=== PATIENT | male | born 1985 ===

== ENCOUNTER 2024-09-16 18:19 | Inpatient (IN) | payer MEDICAID, SELFPAY ==
[2024-09-16] VITALS (9 sets, daily range): BP systolic 98–127; BP diastolic 66–94; PULSE 115–151; RESP 14–24; TEMP 37.3; O2SAT 94–98
--- NOTE | 2024-09-16 19:19 | W.PC.ACHO ---
Registration Status: Primary Language: Preferred Language: Diet Orders Category Date Time Status Regular/Normal [DIET] Nutrition 09/17/24 Breakfast Ordered Intake and Output - 24 Hour Total 09/16/24 thru 09/16/24 18:05 Weight 75 kg v v v v v v v v v Sending and/or Receiving Nurses: Please use comment section below to note any information pertinent to the patient hand-off not included above. Information / Comments: All questions answered. Hardcopy of patient report put in chart. Report received from:Russ Conde RN @ [facility] emergency department.
[2024-09-16] MEDS: PHENobarbital 130 MG/ML VIAL IVP ×6 (20:12→23:21)
[2024-09-16] MEDS: Normal Saline Flush 10 ML SYR IVP ×5 (20:13→22:11)
--- NOTE | 2024-09-16 21:10 | W.PM.HP.N ---
Date of service: 09/16/24 Time of Service: 21:10 Assessment and Plan Assessment and plan (1) Alcohol withdrawal: Start date: 09/16/24 Status: Acute Assessment and plan: This is a 47-year-old gentleman transferred from an outside hospital, [facility] for treatment of alcohol withdrawal with patient having severe alcohol withdrawal with seizures in the past. He has not been successful quitting alcohol last night he is on benzodiazepine treatment for his may have been self treating anxiety with alcohol. He has fair insight. He did have more consistent symptoms and denies alcohol which can be reengaged at discharge. He will be admitted to the ICU for alcohol withdrawal protocol with phenobarbital. He has fair insight. He is a full code. (2) Alcohol abuse: Status: Chronic Assessment and plan: Patient has had intermittent dissociation with sustained success quitting alcohol in the past. He seems highly motivated to quit alcohol will need a more attention to his anxiety and self treatment. He does have some addiction personality with benzodiazepine use. Urine drug screen should be considered and the VPMS was reviewed revealing his recent prescription being abruptly reduced as per his history. Patient should review this with his psychiatric caregiver. He also may engage with his PCP for more reliable prescribing and monitoring. (3) Depression with anxiety: Status: Chronic Assessment and plan: Patient initiated and more aggressive than evaluation and treatment of this problem which is now down to extremity with an alcohol and unfortunately used benzodiazepines. He should avoid medications for (4) Tobacco use disorder, continuous: Status: Acute Assessment and plan: Offer nicotine supplement as needed. Long-term cessation was recommended. Patient may be self treating anxiety with nicotine. History of Present Illness History of Present Illness Chief Complaint: Benzodiazepine withdrawal with alcohol abuse. Narrative: This is a 39-year-old male patient who resides in [place], [place] seeing his PCP at [facility] and psychiatry and in [place]. He does have alcohol abuse and has intermittently stopped using alcohol once for more than a year and recently just under a year. He does drink alcohol to self treat anxiety with depression and is on antidepressants along with clonidine for blood pressure. He also was prescribed Klonopin at a low dose but frequent dosing over the last several months with the last prescription miss-written and the patient running out early. He ran out for about 1 week and had an escalation in his alcohol use. He is on Vivitrol IM monthly through mental health. He has his prescriptions for Klonopin through mental [facility] and finds that at times they are difficult to engage with but he has problems. I did advise that he engage with his PCP on his controlled substance treatment to have more communication and to avoid this situation in the future. VPMS was reviewed and does reveal prescribing of Klonopin through mental health as patient stated. He will try. With negative for any other substances. Patient reported to the ED did not have alcohol because of concerns for alcohol withdrawal and benzodiazepine withdrawal. He was given a dose of Ativan but wants a [facility] ER called for transfer to our ICU unit, he was directed to phenobarbital protocol for alcohol withdrawal. He did have an alcohol level earlier in the day of admission at [facility]. Upon transfer to [facility] ICU, the patient was having alcohol withdrawal actively and phenobarbital loading dose was completed with intermittent phenobarbital for withdrawal symptoms. Patient does have fair insight into his problems with addiction and self treating. He is engaged with mental health and will continue this relationship. He was admitted to ICU because of his severe withdrawal with seizures in the past. He was given the higher dose of phenobarbital loading. We will avoid benzodiazepines during this hospital stay, patient needs to discuss alternative treatments for his anxiety and benzodiazepines in the future because of his difficulty obtaining consistent prescribing. His medical problems are stable upon transfer and admission to ICU. He does not appear to have any problem with other substance abuse. He is a full code. Review of Systems Narrative: 13 point review of systems otherwise unrevealing or stable. There was no tail ripper to this decompensation other than ran out of his Klonopin which was miss-prescribed the last prescription. [facility] All Active Problems Anemia (Chronic) Thrombocytopenia (Chronic) Alcoholic hepatitis (Acute) Alcohol withdrawal (Acute) Tobacco use disorder, continuous (Acute) Depression with anxiety (Chronic) Alcohol abuse (Chronic) Social History Smoking/Tobacco Use Status: Current every day Tobacco Type: cigarettes and smokeless tobacco Smoking risk assessment performed?: Yes Alcohol Intake: current Alcohol Intake frequency: 3 or more drinks per day Alcohol type: beer Substance use type: does not use Housing: apartment Do you feel safe at home: Yes Do you feel safe in your relationship?: Yes Meds Allergies and Home Medications Allergies Allergy/AdvReac Type Severity Reaction Status Date / Time animal dander Allergy Intermediate Other (See Verified 09/16/24 20:49 Comment) gabapentin AdvReac Unknown Unknown Verified 09/17/24 21:06 Home Medications ?Medication ?Instructions ?Recorded ?Confirmed ?Type ferrous sulfate PO 09/16/24 History folic acid .ROUTE 09/16/24 History naltrexone microspheres 380 mg 380 mg IM QMONTH 09/16/24 09/16/24 History intramuscular suspension,extended release (Vivitrol) thiamine HCl (vitamin B1) .ROUTE 09/16/24 History chlordiazepoxide HCl 5 mg capsule 5 mg PO TID PRN #20 caps 09/21/24 Rx nicotine 21 mg/24 hr daily 21 mg transdermal QPM 7 days #7 ea 09/21/24 Rx transdermal patch pantoprazole 40 mg tablet,delayed 40 mg PO QAM #30 tabs 09/21/24 Rx release sertraline 50 mg tablet 50 mg PO DAILY 30 days #30 tabs 09/21/24 Rx Exam Narrative Exam Narrative: General: Patient appears appropriate for age, slightly anxious with pressured speech, alert and oriented x 3 and in no acute distress. HEENT: Normocephalic, eyes with pupils equal and reactive light symmetrically, extraocular movement intact and sclera anicteric. Oropharynx with moist mucosa and good dentition. Neck: Supple without JVD. Back: Normal posture without CVA tenderness. Lungs: Clear to auscultation percussion with no focalizing rales or rhonchi. No expiratory wheeze. Heart: Regular rate and gallops appreciated. Abdomen: Normal contour, soft and nontender to palpation without palpable hepatosplenomegaly. Bowel sounds positive in all 4 Genitalia/rectal: Exam deferred. Extremities: Without clubbing, cyanosis or pitting edema. Peripheral pulses intact Skin: Slightly sweaty, warm and normal color. Neuro: Cranial nerves II to XII grossly intact, no focalizing motor deficits that no tremor. Psych: Anxious, pressured conversation and unable to stay on task and good historian. No abnormal thought processes per recent memory intact. Results Labs 09/21/24 06:28 09/21/24 06:28 Last Vital Signs Temp 37.3 C 09/16/24 20:08 Pulse 127 H 09/16/24 20:08 Resp 15 09/16/24 20:08 BP 127/91 H 09/16/24 20:08 Time Spent Time spent with Patient: >75 minutes Time was spent: preparing to see the patient(eg.review tests), obtaining and/or reviewing separately otained hiistory, ordering medications,tests, procedures, indepentently interpreting results, counseling the patient and care coordination
[2024-09-16 21:28] LABS: HCT 37.8 % (40.0-50.0); HGB 13.6 g/dL (13.5-17.5); MCH 34.5 pg (27.0-33.0); MCV 96 fL (80-95); MPV 9.4 fL (8.0-11.0); Platelet Count 166 10^3/uL (130-400); RBC 3.94 10^6/uL (4.36-5.78); RDW 12.4 % (11.8-14.1); RDW-SD 43.7 fL; WBC 10.25 10^3/uL (4.4-10.8)
[2024-09-16] MEDS: Enoxaparin 40 MG/0.4 ML SYR SC (21:35)
[2024-09-16 21:39] LABS: Prothrombin Time 9.8 sec (9.1-11.1)
[2024-09-16] MEDS: Normal Saline 1,000 ML 150 ML IV (21:45)
[2024-09-16 21:48] LABS: PHOSPHORUS 2.5 mg/dL (2.6-4.7)
[2024-09-16 21:51] LABS: ALT 262 U/L (16-63); AST 194 U/L (15-37); Albumin 3.4 g/dL (3.4-5.0); Alkaline Phosphatase 65 U/L (46-116); Anion Gap 11.2 mmol/L (3-11); BUN 17 mg/dL (7-18); Bilirubin, Total 0.6 mg/dL (0.2-1.0); CO2 24.8 mmol/L (21.0-32.0); CREATININE 0.6 mg/dL (0.70-1.30); Calcium 7.5 mg/dL (8.5-10.1); Chloride 104 mmol/L (98-107); Estimated GFR 125.15 (mL/min/1.73m2); Glucose 95 mg/dL (74-106); Potassium 3.8 mmol/L (3.5-5.1); Sodium 140 mmol/L (136-145); Total Protein 6.1 g/dL (6.4-8.2)
[2024-09-16 22:05] LABS: COVID-19 PCR Negative (Negative); Influenza A PCR Negative (Negative); Influenza B PCR Negative (Negative); RSV PCR Negative (Negative)
[2024-09-16 22:06] LABS: Source Nasopharynx
[2024-09-16] MEDS: cloNIDine 0.1 MG TAB 0.2 MG PO (23:51)
[2024-09-17] VITALS (31 sets, daily range): BP systolic 88–143; BP diastolic 55–94; PULSE 79–145; RESP 10–36; TEMP 36.2–37; O2SAT 94–99
[2024-09-17] MEDS: Pantoprazole 40 MG VIAL IVP ×2 (00:02→08:03)
[2024-09-17] MEDS: Normal Saline Flush 10 ML SYR IVP ×3 (00:02→19:38)
[2024-09-17] MEDS: Prochlorperazine 10 MG/2 ML VIAL IVP ×2 (00:02→03:57)
[2024-09-17 00:17] LABS: PHENOBARBITAL 24.3 ug/mL (15.0-40.0)
[2024-09-17] MEDS: PHENobarbital 130 MG/ML VIAL IVP ×3 (01:22→04:34)
[2024-09-17 03:20] LABS: HCT 31.4 % (40.0-50.0); HGB 11.2 g/dL (13.5-17.5); MCH 34.4 pg (27.0-33.0); MCHC 35.7 % (32.0-36.0); MCV 96 fL (80-95); MPV 9.5 fL (8.0-11.0); Platelet Count 127 10^3/uL (130-400); RBC 3.26 10^6/uL (4.36-5.78); RDW 12.4 % (11.8-14.1); RDW-SD 43.9 fL; WBC 7.43 10^3/uL (4.4-10.8)
[2024-09-17 03:38] LABS: ALT 210 U/L (16-63); AST 149 U/L (15-37); Albumin 2.9 g/dL (3.4-5.0); Alkaline Phosphatase 55 U/L (46-116); Anion Gap 8.7 mmol/L (3-11); BUN 20 mg/dL (7-18); Bilirubin, Total 0.8 mg/dL (0.2-1.0); CO2 25.3 mmol/L (21.0-32.0); CREATININE 0.6 mg/dL (0.70-1.30); Calcium 7.2 mg/dL (8.5-10.1); Chloride 105 mmol/L (98-107); Estimated GFR 125.15 (mL/min/1.73m2); Glucose 93 mg/dL (74-106); Magnesium 1.3 mg/dL; PHOSPHORUS 2.1 mg/dL (2.6-4.7); Potassium 3.8 mmol/L (3.5-5.1); Sodium 139 mmol/L (136-145); Total Protein 5.2 g/dL (6.4-8.2)
[2024-09-17 04:08] LABS: PHENOBARBITAL 28.3 ug/mL (15.0-40.0)
[2024-09-17] MEDS: MAGNESIUM SULFATE 2 GM/50 ML BAG IV_INF ×2 (04:39→08:57)
[2024-09-17] MEDS: Normal Saline 1,000 ML 150 ML IV (04:45)
[2024-09-17] MEDS: cloNIDine 0.1 MG TAB 0.2 MG PO ×2 (04:47→08:05)
[2024-09-17] MEDS: Multivitamin TAB 1 TAB PO (08:04)
[2024-09-17] MEDS: Folic Acid 1 MG TAB PO (08:04)
[2024-09-17] MEDS: Thiamine 100 MG TAB PO (08:04)
--- NOTE | 2024-09-17 08:26 | W.PM.PROGNOT ---
Date of Service Date of service: 09/17/24 Time of Service: 08:26 Assessment and Plan Assessment and plan (1) Alcohol withdrawal: Start date: 09/16/24 Status: Acute Assessment and plan: Combination of alcohol and benzodiazepine withdrawal On phenobarbital protocol, has hit hard max, though we could repeat levels and redose if necessary He is still quite anxious, will add dexmedetomide drip. Hold clonidine while he is on this as mechanism is same. Treat symptoms with ondansatron, immodium (2) Alcohol abuse: Status: Chronic Assessment and plan: H/o severe alcohol use disorder. Has been treated with IM naltrexone, though late for dose. Has been on prescribed chronic benzodiazapines, overusing, suggesting mixed disorder. 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 Ila discussed options like baclofen, topiramate, gabapentin. Has tried gabapentin. Defer these for now. (3) Depression with anxiety: Status: Chronic Assessment and plan: Resume buproprion. This can lower seizure threshold, but he is on therapeutic phenobarbital so I think this is safe. Dose is low. (4) Tobacco use disorder, continuous: Status: Acute Assessment and plan: NRT prn, might help with anxiety (5) Alcoholic hepatitis: Status: Acute Assessment and plan: Mild, normal INR and bili. AST/ALT imrpoving. (6) Thrombocytopenia: Status: Chronic Assessment and plan: I am not sure how chronic this is. Alcohol, vitamin deficiency like b12, or cirrhosis could all cause this. He is also on enoxaparin. Follow. (7) Anemia: Status: Chronic Assessment and plan: Mild after hydration. He is at risk for GI bleed but we haven't seen this. Get ferritin and B12 with routine labs. Follow. (8) Hypomagnesemia: Status: Acute Assessment and plan: Quite low at 1.3 a/w alcohol abuse. Given 2g, give additional 2g as it may help with anxiety symptoms. Follow. Subjective Subjective Patient reports: denies vomiting, shortness of breath or fever Interval history since last seen: Events: Hit hard stop on phenobarbital this morning He still feels quite anxious, on edge, shaky. He had loose stool this morning. Some mild nausea. no pain. He did eat breakfast. Exam Narrative Exam Narrative: GEN: Alert and oriented, anxious and uncomfortable appearing, but cooperative. LUNGS: CTAB with normal effort CV: tachycardic and regular with no murmurs, gallops, or rubs. ABD: active bowel sounds, soft, nontender and nondistended. No masses. EXT: no cyanosis, clubbing, or edema NEURO: Normal speech, mild fine tremor PSYCH: mood depressed, affect anxious, no hallucinations Objective Last Vital Signs Temp 37 C 09/17/24 02:45 Pulse 125 H 09/17/24 07:02 Resp 24 09/17/24 07:02 BP 129/82 09/17/24 07:02 Pulse Ox 94 09/17/24 07:02 Laboratory Results - last 24 hr 09/16/24 09/16/24 09/17/24 21:20 23:50 02:57 WBC 10.25 RBC 3.94 L Hgb 13.6 Hct 37.8 L MCV 96 H MCH 34.5 H MCHC 36.0 RDW 12.4 Plt Count 166 MPV 9.4 PT 9.8 INR 1.0 Sodium 140 Potassium 3.8 Chloride 104 Carbon Dioxide 24.8 Anion Gap 11.2 H BUN 17 Creatinine 0.6 L Est GFR (CKD-EPI 2020) 125.15 Glucose 95 Calcium 7.5 L Phosphorus 2.5 L Magnesium Total Bilirubin 0.6 AST 194 H ALT 262 H Alkaline Phosphatase 65 Total Protein 6.1 L Albumin 3.4 Phenobarbital 24.3 Free Phenobarbital Cancelled COVID-19 Source Nasopharynx SARS-CoV-2 (PCR) Negative Influenza Type A (PCR) Negative Influenza Type B (PCR) Negative RSV (PCR) Negative 09/17/24 03:11 WBC 7.43 RBC 3.26 L Hgb 11.2 L D Hct 31.4 L MCV 96 H MCH 34.4 H MCHC 35.7 RDW 12.4 Plt Count 127 L MPV 9.5 PT INR Sodium 139 Potassium 3.8 Chloride 105 Carbon Dioxide 25.3 Anion Gap 8.7 BUN 20 H Creatinine 0.6 L Est GFR (CKD-EPI 2020) 125.15 Glucose 93 Calcium 7.2 L Phosphorus 2.1 L Magnesium 1.3 Total Bilirubin 0.8 AST 149 H ALT 210 H Alkaline Phosphatase 55 Total Protein 5.2 L Albumin 2.9 L Phenobarbital 28.3 Free Phenobarbital COVID-19 Source SARS-CoV-2 (PCR) Influenza Type A (PCR) Influenza Type B (PCR) RSV (PCR) PAWSS Have you Been Recently Intoxicated or Drunk Within the Last 30 days?: Yes Have you Ever Experienced Previous Episodes of Alcohol Withdrawal?: Yes Have you ever Experienced Withdrawal Seizures?: Yes Have you ever Experienced Delirium Tremens(DT)s?: Yes Have you ever undergone Alcohol Rehabilitation Treatment (i.e, inpt ot outpatient treatment programs)?: Yes Have you ever Experienced Blackouts?: Yes Positive Blood Alcohol level on Presentation? [PCS.BAL]: Yes Evidence of Increased Autonomic Activity (i.e. HR>120, tremor, sweating, agitation, nausea)?: Yes Result: 8 Time Spent with Patient Time Spent with Patient: >50 minutes Time was spent: preparing to see the patient(eg.review tests), obtaining and/or reviewing separately otained hiistory, ordering medications,tests, procedures, referring, communicating with other health clinical care manager, indepentently interpreting results, counseling the patient and care coordination
--- NOTE | 2024-09-17 08:50 | PDOC.CMIN ---
Date of service: 09/17/24 Time of Service: 08:50 Care Management Initial Assmt Initial Assessment Reason for Hospitalization: ETOH Withdrawal Functional Status/Living Situation Patient Presentation: Lorenzo was awake and lying in bed when CM met with him. He is been closely monitored and treated for ETOH withdrawal and on phenobarbital protocol. Lorenzo lives in [place], he is independent at baseline and reports that his parent and sister are very supportive. 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 He may want to meet with a Insurance And Benefits Clerk during his admission, but not right now. 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) Instrumental Activities of Daily Living (ADLs): Independent Medications Medication Management: No Issues/Barriers identified Physical Functioning/Mobility Assistive Device: None Advance Directives Advance Directives: Do you have an Advance Directive: AD On File at [facility]: N 09/16/24 17:21 Date Asked 09/16/24 09/16/24 17:21 AD Date Reviewed COLST On File at [facility] COLST Date Scanned Code Status Resuscitation Status Full Code Portal Pt does not currently have a portal and education provided: Yes Insurance Coverage/Financial Issues Insurance: Medicaid of [place] Financial Issues: None identified Care Team Visit Care Team Role Provider Type Unknown Unknown Primary Care Provider STAFF PHYSICIAN Tim Sen Admit Provider [facility] STAFF PHYSICIAN Attending Provider Discharge Potential Discharge Needs: PCP F/U Appt (PCP is Dante Johnson.) Anticipated Barriers to Discharge: None Identified Patient/Family Education Needs: Review discharge instructions, discuss Ask Me Three Transportation: Private vehicle Plan: Lorenzo is being closely monitored and treated for ETOH withdrawal. 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 He will follow up with PCP, discharge plan of care and will be provided with recovery resources (from the [facility], if any.) CM will follow. Social Determinants of Health Screening Social Determinants of Health last assessed: 09/17/24 Will the Patient Participate in the Screening?: Yes Do you worry about having a steady place to live?: no Problems where you live: mold and water leaks In the past 12 months, have you had to go without electric, gas, oil or water in your home?: no Have you or anyone in your house had to go without enough food to eat?: no Has lack of transportation kept you from medical appointments or from doing things needed for daily living?: no Has anyone in your life made you feel unsafe or unsupported?: no How hard is it for you to pay for the very basics like food, housing, medical care, and heating? Would you say it is:: Not hard at all Do you want help finding or keeping work or a job?: I do not need or want help If for any reason you need help with day-to-day activities such as bathing, preparing meals, shopping, managing finances, etc., do you get the help you need?: I don?t need any help How often do you feel lonely or isolated from those around you?: Always Do you speak a language other than Indonesian at home?: No Does the patient want assistance with any of the above?: No Health Related Social Needs Health related social needs: inadequate housing (Z59.1) and feeling lonely/isolated (Z60.8) PFSH All Active Problems Hypomagnesemia (Acute) Anemia (Chronic) Thrombocytopenia (Chronic) Alcoholic hepatitis (Acute) Tobacco use disorder, continuous (Acute) Depression with anxiety (Chronic) Alcohol withdrawal (Acute) Alcohol abuse (Chronic) Social History Smoking/Tobacco Use Status: Current every day Tobacco Type: cigarettes and smokeless tobacco Smoking risk assessment performed?: Yes Alcohol Intake: current Alcohol Intake frequency: 3 or more drinks per day Alcohol type: beer Substance use type: does not use Housing: apartment Do you feel safe at home: Yes Do you feel safe in your relationship?: Yes
[2024-09-17] MEDS: Nicotine 21 MG/24 HR PATCH TD (08:57)
[2024-09-17] MEDS: buPROPion-CR 100 MG TABCR 200 MG PO (08:57)
[2024-09-17] MEDS: dexmedeTOMidine IN 0.9 % NACL 400 MCG/100 ML BTL 7.19 MCG IV (11:09)
--- NOTE | 2024-09-17 12:26 | PHA.REVIEW2 ---
Pharmacy Admission Review Admission Clinical Review Admission Pharmacy Review: Hypomagnesemia (Acute) Alcoholic hepatitis (Acute) Tobacco use disorder, continuous (Acute) Alcohol withdrawal (Acute) animal dander Allergy (Intermediate, Verified 09/16/24 20:49) Other (See Comment) gabapentin Allergy (Unknown, Verified 09/16/24 20:48) Unknown Resuscitation Status Full Code Height 5 ft 10 in Weight 71.9 kg Comments Comments/Follow Ups: Watch CIWA, BP, HR, labs, and for med changes (IV to PO). Patient has hit phenobarbital dosing hard limit based on what patient received in the ED in addition to PRN dosing given here. Pharmacy Admission Review Renal Dosing Renal Dosing: BUN 20 mg/dL (7-18) H 09/17/24 03:11 Creatinine 0.6 mg/dL (0.70-1.30) L 09/17/24 03:11 Medications needing adjustments: Reviewed (Crcl ~166 mL/min current meds are okay) Anticoagulation Anticoagulation: Hgb 11.2 g/dL (13.5-17.5) L D 09/17/24 03:11 Hct 31.4 % (40.0-50.0) L 09/17/24 03:11 Plt Count 127 10^3/uL (130-400) L 09/17/24 03:11 INR 1.0 (0.9-1.1) 09/16/24 21:20 Creatinine 0.6 mg/dL (0.70-1.30) L 09/17/24 03:11 DVT Prophylaxis: Reviewed Medications: Enoxaparin Opiate Usage Evaluate Pain Scale/Pains Meds: N/A Relevant Labs Relevant Labs: Sodium 139 mmol/L (136-145) 09/17/24 03:11 Potassium 3.8 mmol/L (3.5-5.1) 09/17/24 03:11 Chloride 105 mmol/L (98-107) 09/17/24 03:11 Phosphorus 2.1 mg/dL (2.6-4.7) L 09/17/24 03:11 Magnesium 1.3 mg/dL 09/17/24 03:11 Electrolytes, C-Reactive P, ESR: Reviewed DM Control DM Control: Glucose 93 mg/dL (74-106) 09/17/24 03:11 DM Control: Reviewed (No DM in medical history, no A1c on file) Cardiac Review BP, HR, EF%: Reviewed (BP has been up and down and HR has been elevated so far this admission) QTc Review QTc: N/A IV to PO Switch IV Medications: Reviewed Home Meds Home Med List reviewed: Reviewed (clonazepam (is being held per H&P), clonidine (being held while on dexmedetomidine as they are both alpha2 agonists), ferrous sulfate, naltrexone (dosed once a month)) Current Meds Current Medication Order Review: Reviewed Comments Comments/Follow Ups: Watch CIWA, BP, HR, labs, and for med changes (IV to PO). Patient has hit phenobarbital dosing hard limit based on what patient received in the ED in addition to PRN dosing given here.
[2024-09-17] MEDS: dexmedeTOMidine IN 0.9 % NACL 400 MCG/100 ML BTL 12.583 MCG IV (17:06)
[2024-09-17] MEDS: Acetaminophen 325 MG TAB PO (19:37)
[2024-09-17] MEDS: Enoxaparin 40 MG/0.4 ML SYR SC (19:38)
--- NOTE | 2024-09-17 20:52 | W.PC.ACHO ---
Registration Status: Primary Language: Preferred Language: Most Recent Vital Signs Temperature 36.8 C 09/17/24 19:24 Temperature Source Temporal Artery Scan 09/17/24 19:24 Pulse 93 H 09/17/24 19:00 Pulse 90 09/17/24 19:01 Respiratory Rate 14 09/17/24 19:01 Blood Pressure 88/57 L 09/17/24 19:00 Blood Pressure Mean 68 09/17/24 19:00 Pulse Oximetry 97 09/17/24 17:00 Oxygen Delivery Method Room Air 09/17/24 19:24 Oxygen Flow Rate 0 09/17/24 19:24 Pain Level 5 09/17/24 19:24 Allergies animal dander Allergy (Intermediate, Verified 09/16/24 20:49) Other (See Comment) sneezing, and nasal congestion gabapentin Allergy (Unknown, Verified 09/16/24 20:48) Unknown patient does not like how he feels with it Active Medications Generic Name Dose Route Start Last Admin Trade Name Freq PRN Reason Stop Dose Admin Acetaminophen 325 - 650 mg 09/16/24 20:51 09/17/24 19:37 Acetaminophen 325 Mg Tab PO 650 mg Q4H PRN PRN Administration Bupropion HCl 200 mg 09/17/24 09:00 09/17/24 08:57 Bupropion-Cr 100 Mg Tabcr PO 200 mg DAILY JORDAN Administration Enoxaparin Sodium 40 mg 09/16/24 20:00 09/17/24 19:38 Enoxaparin 40 Mg/0.4 Ml Syr SC 40 mg Q24H JORDAN Administration Folic Acid 1 mg 09/17/24 08:30 09/17/24 08:04 Folic Acid 1 Mg Tab PO 09/23/24 08:31 1 mg QAM JORDAN Administration Dexmedetomidine/Sodium Chloride 400 mcg in 100 mls @ 7.19 mls/hr 09/17/24 08:30 09/17/24 19:41 Precedex IV 0.9 mcg/kg/hr INFUSION JORDAN 16.178 mls/hr Titration Protocol 0.4 MCG/KG/HR Multivitamins 1 tab 09/17/24 08:30 09/17/24 08:04 Multivitamin Tab PO 09/23/24 08:31 1 tab QAM JORDAN Administration Nicotine 21 mg 09/17/24 08:19 09/17/24 08:57 Nicotine 21 Mg/24 Hr Patch TD 21 mg DAILY PRN PRN Administration Pantoprazole Sodium 40 mg 09/17/24 08:30 09/17/24 08:03 Pantoprazole 40 Mg Vial IVP 40 mg DAILY JORDAN Administration Prochlorperazine Edisylate 10 mg 09/16/24 23:47 09/17/24 03:57 Prochlorperazine 10 Mg/2 Ml Vial IVP 10 mg Q4H PRN PRN Administration Sodium Chloride 0 ml 09/16/24 18:18 09/17/24 00:02 Normal Saline Flush 10 Ml Syr IVP 40 ml PRN PRN Administration Sodium Chloride 0 ml 09/16/24 20:00 09/17/24 19:38 Normal Saline Flush 10 Ml Syr IVP 10 ml BID JORDAN Administration Thiamine HCl 100 mg 09/17/24 08:30 09/17/24 08:04 Thiamine 100 Mg Tab PO 09/23/24 08:31 100 mg QAM JORDAN Administration IV IV Catheter Type [] Peripheral IV IV Catheter Gauge [] 18 Diagnostics 09/17/24 09/17/24 09/16/24 Range/Units 03:11 02:57 23:50 WBC 7.43 (4.4-10.8) 10^3/uL RBC 3.26 L (4.36-5.78) 10^6/uL Hgb 11.2 L D (13.5-17.5) g/dL Hct 31.4 L (40.0-50.0) % MCV 96 H (80-95) fL MCH 34.4 H (27.0-33.0) pg MCHC 35.7 (32.0-36.0) % RDW 12.4 (11.8-14.1) % Plt Count 127 L (130-400) 10^3/uL MPV 9.5 (8.0-11.0) fL PT (9.1-11.1) sec INR (0.9-1.1) Sodium 139 (136-145) mmol/L Potassium 3.8 (3.5-5.1) mmol/L Chloride 105 (98-107) mmol/L Carbon Dioxide 25.3 (21.0-32.0) mmol/L Anion Gap 8.7 (3-11) mmol/L BUN 20 H (7-18) mg/dL Creatinine 0.6 L (0.70-1.30) mg/dL Est GFR (CKD-EPI 2020) 125.15 (mL/min/1.73m2) Glucose 93 (74-106) mg/dL Calcium 7.2 L (8.5-10.1) mg/dL Phosphorus 2.1 L (2.6-4.7) mg/dL Magnesium 1.3 mg/dL Total Bilirubin 0.8 (0.2-1.0) mg/dL AST 149 H (15-37) U/L ALT 210 H (16-63) U/L Alkaline Phosphatase 55 (46-116) U/L Total Protein 5.2 L (6.4-8.2) g/dL Albumin 2.9 L (3.4-5.0) g/dL Phenobarbital 28.3 24.3 (15.0-40.0) ug/mL Free Phenobarbital Cancelled COVID-19 Source SARS-CoV-2 (PCR) (Negative) Influenza Type A (PCR) (Negative) Influenza Type B (PCR) (Negative) RSV (PCR) (Negative) 09/16/24 Range/Units 21:20 WBC 10.25 (4.4-10.8) 10^3/uL RBC 3.94 L (4.36-5.78) 10^6/uL Hgb 13.6 (13.5-17.5) g/dL Hct 37.8 L (40.0-50.0) % MCV 96 H (80-95) fL MCH 34.5 H (27.0-33.0) pg MCHC 36.0 (32.0-36.0) % RDW 12.4 (11.8-14.1) % Plt Count 166 (130-400) 10^3/uL MPV 9.4 (8.0-11.0) fL PT 9.8 (9.1-11.1) sec INR 1.0 (0.9-1.1) Sodium 140 (136-145) mmol/L Potassium 3.8 (3.5-5.1) mmol/L Chloride 104 (98-107) mmol/L Carbon Dioxide 24.8 (21.0-32.0) mmol/L Anion Gap 11.2 H (3-11) mmol/L BUN 17 (7-18) mg/dL Creatinine 0.6 L (0.70-1.30) mg/dL Est GFR (CKD-EPI 2020) 125.15 (mL/min/1.73m2) Glucose 95 (74-106) mg/dL Calcium 7.5 L (8.5-10.1) mg/dL Phosphorus 2.5 L (2.6-4.7) mg/dL Magnesium mg/dL Total Bilirubin 0.6 (0.2-1.0) mg/dL AST 194 H (15-37) U/L ALT 262 H (16-63) U/L Alkaline Phosphatase 65 (46-116) U/L Total Protein 6.1 L (6.4-8.2) g/dL Albumin 3.4 (3.4-5.0) g/dL Phenobarbital (15.0-40.0) ug/mL Free Phenobarbital COVID-19 Source Nasopharynx SARS-CoV-2 (PCR) Negative (Negative) Influenza Type A (PCR) Negative (Negative) Influenza Type B (PCR) Negative (Negative) RSV (PCR) Negative (Negative) Intake and Output - 24 Hour Total 09/16/24 thru 09/17/24 19:54 Intake Total 4538.561 Output Total 1675 Balance 2863.561 Weight 71.9 kg Intake: IV 1868.561 Oral 2670 Output: Urine 1675 Other: Urine Color Yellow Urine Appearance Clear Urine Odor None Stool Size Moderate Stool Characteristics Soft Black Problems Hypomagnesemia (Acute) Anemia (Chronic) Thrombocytopenia (Chronic) Alcoholic hepatitis (Acute) Tobacco use disorder, continuous (Acute) Depression with anxiety (Chronic) Alcohol withdrawal (Acute) Alcohol abuse (Chronic) v v v v v v v v v Sending and/or Receiving Nurses: Please use comment section below to note any information pertinent to the patient hand-off not included above. Information / Comments: Report received from: DayannaRN @[facility] [place],@ [id number]
[2024-09-17] MEDS: dexmedeTOMidine IN 0.9 % NACL 400 MCG/100 ML BTL 19.773 MCG IV (23:32)
[2024-09-18] VITALS (39 sets, daily range): BP systolic 91–124; BP diastolic 62–88; PULSE 69–102; RESP 10–19; TEMP 36.3–37.6; O2SAT 93–100
[2024-09-18] MEDS: dexmedeTOMidine IN 0.9 % NACL 400 MCG/100 ML BTL 23.368 MCG IV ×5 (04:26→21:49)
[2024-09-18 06:18] LABS: HCT 26.8 % (40.0-50.0); HGB 9.2 g/dL (13.5-17.5); MCH 33.8 pg (27.0-33.0); MCHC 34.3 % (32.0-36.0); MCV 99 fL (80-95); MPV 10.3 fL (8.0-11.0); Platelet Count 119 10^3/uL (130-400); RBC 2.72 10^6/uL (4.36-5.78); RDW 12.3 % (11.8-14.1); RDW-SD 44.4 fL; WBC 4.12 10^3/uL (4.4-10.8)
[2024-09-18] MEDS: Normal Saline Flush 10 ML SYR IVP ×6 (06:40→22:28)
[2024-09-18 06:48] LABS: Ferritin 675 ng/mL (26-388); Magnesium 1.7 mg/dL
[2024-09-18 07:02] LABS: Vitamin B12 413 pg/mL (193-986)
[2024-09-18] MEDS: Pantoprazole 40 MG VIAL IVP (07:29)
[2024-09-18] MEDS: Multivitamin TAB 1 TAB PO (07:30)
[2024-09-18] MEDS: Folic Acid 1 MG TAB PO (07:30)
[2024-09-18] MEDS: Thiamine 100 MG TAB PO (07:30)
[2024-09-18] MEDS: buPROPion-CR 100 MG TABCR 200 MG PO (07:30)
[2024-09-18] MEDS: Ondansetron O.D.T. 4 MG TABEF PO (08:03)
[2024-09-18] MEDS: Acetaminophen 325 MG TAB PO (08:03)
[2024-09-18] MEDS: PHENobarbital 130 MG/ML VIAL IVP (08:21)
--- NOTE | 2024-09-18 08:51 | PDOC.CMPRO ---
Date of service: 09/18/24 Time of Service: 08:51 Care Management Progress Note Progress Note Text Progress Note Text: Lorenzo was awake and lying in bed when CM met with him. He is being closely monitored and treated for ETOH and Benzo withdrawal. He has chronic anxiety, which is being medically managed; he is on Precedex and required a dose of Phenobarb this morning. Lorenzo declines to meet with a high school sports coach, today. He is agreeable, at a later time and when he is less anxious. Lorenzo is self employed, his physical address is [place] [employer], but he gets his mail in [place]. Discharge Potential Discharge Needs: PCP F/U Appt Anticipated Barriers to Discharge: None Identified Patient/Family Education Needs: Review discharge instructions, discuss Ask Me Three Transportation: Private vehicle Plan: Anticipate, pt will discharge home via private when medically cleared for discharge. He will follow up with his local PCP and discharge plan of care as directed. CM will follow and connect patient with community supports for substance abuse, when ready. Social Determinants of Health Screening Social Determinants of Health last assessed: 09/18/24 Will the Patient Participate in the Screening?: Yes Do you worry about having a steady place to live?: no Problems where you live: mold and water leaks In the past 12 months, have you had to go without electric, gas, oil or water in your home?: no Have you or anyone in your house had to go without enough food to eat?: no Has lack of transportation kept you from medical appointments or from doing things needed for daily living?: no Has anyone in your life made you feel unsafe or unsupported?: no How hard is it for you to pay for the very basics like food, housing, medical care, and heating? Would you say it is:: Not hard at all Do you want help finding or keeping work or a job?: I do not need or want help If for any reason you need help with day-to-day activities such as bathing, preparing meals, shopping, managing finances, etc., do you get the help you need?: I don?t need any help How often do you feel lonely or isolated from those around you?: Always Do you speak a language other than [place]ambican at home?: No Does the patient want assistance with any of the above?: No Health Related Social Needs Health related social needs: inadequate housing (Z59.1) and feeling lonely/isolated (Z60.8)
[2024-09-18] MEDS: Nicotine 21 MG/24 HR PATCH TD (08:59)
--- NOTE | 2024-09-18 11:06 | PGE_ITS ---
Date of Service Date of service: 09/18/24 Time of Service: 11:06 Assessment and Plan Assessment and plan (1) Alcohol withdrawal: Start date: 09/16/24 Status: Acute Assessment and plan: Combination of alcohol and benzodiazepine withdrawal, now day 3 H/o seizures in setting of withdrawal. On phenobarbital protocol, has hit hard max, but with levels therapeutic after his last dose yesterday, given another dose today. Dexmedetomide drip helping, try to taper off as tolerated. Has prn ondansatron, immodium (2) Alcohol abuse: Status: Chronic Assessment and plan: H/o severe alcohol use disorder. Has been treated with IM naltrexone, though late for dose. Can resume orally prior to discharge Has been on prescribed chronic benzodiazapines and he may have a mixed disorder. He agreed that his anxiety should be managed without benzodiazepines given their association with poor outcomes in patients with AUD. We again reviewed options like baclofen, topiramate, gabapentin. Has tried gabapentin and didn't like it. Will try topiramate starting this evening, may help anxiety as well, lower risk of seizuress. (3) Depression with anxiety: Status: Chronic Assessment and plan: We had a long discussion of his history and options for treatment. He was previously on SNRI duloxetine, also has some back pain issues, will resume this. Given h/o seizures, stop buproprion. Can use prn hydroxyzine Has been on clonidine, on precedex now, try changing to guafacine as this is the same class but levels will fluctuate less. (4) Tobacco use disorder, continuous: Status: Acute Assessment and plan: NRT prn, might help with anxiety doesn't want to try chantix (5) Alcoholic hepatitis: Status: Acute Assessment and plan: Mild, normal INR and bili. AST/ALT imrpoving. Follow tomorrow (6) Thrombocytopenia: Status: Chronic Assessment and plan: I am not sure how chronic this is. Alcohol likely cause, B12 normal. He could also have cirrhosis. 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 Follow. (7) Anemia: Status: Chronic Assessment and plan: Mild after hydration, but dropped again today. He is at risk for GI bleed but we haven't seen this. Ferritin and B12 not low. Get FOB, add PPI for now, follow. (8) Hypomagnesemia: Status: Acute Assessment and plan: Still low after 4g, give an additional 2g. Follow. Subjective Subjective Patient reports: tolerating a regular diet and voiding w/o difficulty; denies nausea, vomiting, shortness of breath or fever Interval history since last seen: Events: Started on precedex drip 09/17 Additional dose 130mg phenobarbital 09/18 am He still feels quite anxious. Phenobarbital helps and he can sleep for an hour but doesn't last longer than that. Precedex does help. Physically better, no longer shaky. He was able to stand up this morning, HR doesn't shoot up any mor e. No longer getting loose stool. Exam Narrative Exam Narrative: GEN: Alert and oriented, anxious but more comfortable appearing, lucid and cooperative. LUNGS: CTAB with normal effort CV: tachycardic and regular with no murmurs, gallops, or rubs. ABD: active bowel sounds, soft, nontender and nondistended. EXT: no cyanosis, clubbing, or edema NEURO: Normal speech, no tremor PSYCH: mood depressed, affect anxious, no hallucinations Objective Last Vital Signs Temp 37.6 C H 09/18/24 07:22 Pulse 90 09/18/24 09:02 Resp 17 09/18/24 09:02 BP 91/64 L 09/18/24 09:02 Pulse Ox 100 09/18/24 09:02 Laboratory Results - last 24 hr 09/18/24 05:45 WBC 4.12 L RBC 2.72 L Hgb 9.2 L D Hct 26.8 L MCV 99 H MCH 33.8 H MCHC 34.3 RDW 12.3 Plt Count 119 L MPV 10.3 Magnesium 1.7 Ferritin 675 H Vitamin B12 413 PAWSS Have you Been Recently Intoxicated or Drunk Within the Last 30 days?: Yes Have you Ever Experienced Previous Episodes of Alcohol Withdrawal?: Yes Have you ever Experienced Withdrawal Seizures?: Yes Have you ever Experienced Delirium Tremens(DT)s?: Yes Have you ever undergone Alcohol Rehabilitation Treatment (i.e, inpt ot outpatient treatment programs)?: Yes Have you ever Experienced Blackouts?: Yes Have you ever Combined Alcohol with other Downers within the last 90 days?: No Have you ever Combined Alcohol with any other Substance of Abuse during the last 90 days?: No Positive Blood Alcohol level on Presentation? [PCS.BAL]: Yes Evidence of Increased Autonomic Activity (i.e. HR>120, tremor, sweating, agitation, nausea)?: Yes Result: 8 Time Spent with Patient Time Spent with Patient: >50 minutes Time was spent: preparing to see the patient(eg.review tests), obtaining and/or reviewing separately otained hiistory, ordering medications,tests, procedures, referring, communicating with other health manager critical care, indepentently interpreting results, counseling the patient and care coordination
[2024-09-18] MEDS: MAGNESIUM SULFATE 2 GM/50 ML BAG IV_INF (11:12)
[2024-09-18] MEDS: Mylanta Suspension 30 ML CUP PO (12:07)
[2024-09-18] MEDS: Sertraline 25 MG TAB PO (12:13)
[2024-09-18] MEDS: hydrOXYzine HCL 25 MG TAB PO ×2 (12:31→22:15)
[2024-09-18] MEDS: Milk of Magnesia 30 ML CUP PO (13:28)
[2024-09-18] MEDS: Docusate Sodium 100 MG CAP PO ×2 (13:41→22:13)
[2024-09-18] MEDS: Simethicone 80 MG CHEW PO (15:49)
--- NOTE | 2024-09-18 17:58 | W.EVENT ---
Date of service: 09/18/24 Time of Service: 17:58 Event Note: mid abdominal pain started late morning. Ate breakfast fine hours earlier, but hasn't been able to eat since. Band-like and achey across upper abdomen to his back. Some nausea off/on but not severe. No BM today, passed gas and it didn't help. No heartburn. no vomiting. not SOB. No urinary symtpoms. Has had ondansatron, maalox, simethicone. Also on PPI. Vitals stable, heart regular, lungs clear. +BS, abdomen soft, mild epigastric tenderness. No murphies, no rebound. mild distention. AT risk for PUD, pancreatitis especially. Get labs CBC/CMP/lipase. Less likely cardiac but get one troponin/EKG. If labs concerning consider CT A/P. Time Spent with Patient Time spent in critical care(minutes): 30 Time Spent Included: Chart review, Documenting critically ill care, Time at immediate bedside and Discussing critically ill care with other medical staff
--- NOTE | 2024-09-18 18:00 | RT.EKG_ITS ---
APPROVED REPORT Exam: Resting ECG Reason for Exam: epigastric pain Patient Location: I HR:86 bpm ECG Measurements Heart Rate 86 AXIS CO 146 P 33 QRSd 91 QRS 43 QT 364 T 23 QTc 436 Conclusion Sinus rhythm...normal P axis, V-rate 50- 99 Abnormal R-wave progression, early transition...QRS area>0 in V2 Consider left ventricular hypertrophy...(S V1/V2+R V5/V6) >3.50mV
[2024-09-18 18:35] LABS: Abs Immature Grans 0.03 10^3/uL (0.0-0.06); Absolute Basophil Count 0.01 10^3/uL (0.0-0.2); Absolute Eosinophil Count 0.19 10^3/uL (0.0-0.7); Absolute Lymphocyte Count 1.43 10^3/uL (1.2-3.4); Absolute Monocyte Count 0.51 10^3/uL (0.1-0.8); Absolute Neutrophil Count 5.64 10^3/uL (1.2-6.7); Basophils % 0.1 %; Eosinophils % 2.4 %; HCT 26.7 % (40.0-50.0); HGB 9.7 g/dL (13.5-17.5); Immature Grans % 0.4 %; Lymphocytes % 18.3 %; MCH 34.5 pg (27.0-33.0); MCHC 36.3 % (32.0-36.0); MCV 95 fL (80-95); MPV 10.2 fL (8.0-11.0); Monocytes % 6.5 %; Neutrophils % 72.3 %; Platelet Count 128 10^3/uL (130-400); RBC 2.81 10^6/uL (4.36-5.78); RDW 11.7 % (11.8-14.1); RDW-SD 40.6 fL; WBC 7.81 10^3/uL (4.4-10.8)
[2024-09-18] MEDS: HYDROmorphone 2 MG/ML SYR 1 MG IVP ×2 (18:35→22:34)
[2024-09-18 19:03] LABS: ALT 128 U/L (16-63); AST 57 U/L (15-37); Albumin 3.2 g/dL (3.4-5.0); Alkaline Phosphatase 58 U/L (46-116); Anion Gap 7.2 mmol/L (3-11); BUN 11 mg/dL (7-18); Bilirubin, Total 0.4 mg/dL (0.2-1.0); CO2 28.8 mmol/L (21.0-32.0); CREATININE 0.6 mg/dL (0.70-1.30); Calcium 8.2 mg/dL (8.5-10.1); Chloride 97 mmol/L (98-107); Estimated GFR 125.15 (mL/min/1.73m2); Glucose 106 mg/dL (74-106); Lipase 26 U/L (<78); Potassium 3.7 mmol/L (3.5-5.1); Sodium 133 mmol/L (136-145); Total Protein 5.6 g/dL (6.4-8.2); Troponin I 12 ng/L (<or=76)
[2024-09-18] MEDS: Enoxaparin 40 MG/0.4 ML SYR SC (22:12)
[2024-09-18] MEDS: guanFACINE 1 MG TAB PO (22:15)
[2024-09-18] MEDS: Topiramate 50 MG TAB 25 MG PO (22:15)
[2024-09-18] MEDS: Fluticasone NASAL SPRAY 16 GM BTL NS (22:18)
[2024-09-19] VITALS (28 sets, daily range): BP systolic 93–157; BP diastolic 61–96; PULSE 64–137; RESP 11–19; TEMP 36.7–37.7; O2SAT 94–98
[2024-09-19] MEDS: dexmedeTOMidine IN 0.9 % NACL 400 MCG/100 ML BTL 23.368 MCG IV ×2 (01:47→06:14)
[2024-09-19] MEDS: HYDROmorphone 2 MG/ML SYR 1 MG IVP ×5 (02:59→20:50)
[2024-09-19 03:23] LABS: HCT 26.9 % (40.0-50.0); HGB 9.5 g/dL (13.5-17.5); MCH 34.1 pg (27.0-33.0); MCHC 35.3 % (32.0-36.0); MCV 96 fL (80-95); MPV 10.3 fL (8.0-11.0); Platelet Count 115 10^3/uL (130-400); RBC 2.79 10^6/uL (4.36-5.78); RDW 11.9 % (11.8-14.1); RDW-SD 41.8 fL; WBC 6.64 10^3/uL (4.4-10.8)
[2024-09-19 03:34] LABS: Magnesium 1.9 mg/dL
[2024-09-19 07:01] LABS: PHENOBARBITAL 22.8 ug/mL (15.0-40.0)
[2024-09-19] MEDS: Acetaminophen 325 MG TAB PO ×2 (08:12→20:46)
[2024-09-19] MEDS: Folic Acid 1 MG TAB PO (08:13)
[2024-09-19] MEDS: Pantoprazole 40 MG TABCR PO ×2 (08:13→20:46)
[2024-09-19] MEDS: Multivitamin TAB 1 TAB PO (08:13)
[2024-09-19] MEDS: Thiamine 100 MG TAB PO (08:13)
[2024-09-19] MEDS: Sertraline 50 MG TAB PO (08:14)
[2024-09-19] MEDS: Normal Saline Flush 10 ML SYR IVP ×4 (08:16→20:50)
[2024-09-19] MEDS: hydrOXYzine HCL 25 MG TAB PO ×3 (08:19→18:28)
--- NOTE | 2024-09-19 08:37 | W.PM.PROGNOT ---
Date of Service Date of service: 09/19/24 Time of Service: 08:37 Assessment and Plan Assessment and plan (1) Alcohol withdrawal: Start date: 09/16/24 Status: Acute Assessment and plan: Combination of alcohol and benzodiazepine withdrawal, now day 4 H/o seizures in setting of withdrawal. On phenobarbital protocol, has hit hard max, but with levels therapeutic after dose 09/18. I don't think he needs more of this Dexmedetomide drip helping, still on good dose. Try to taper off as tolerated, started guaficine which should help. (2) Alcohol abuse: Status: Chronic Assessment and plan: H/o severe alcohol use disorder. Has been treated with IM naltrexone, though multiple weeks late for dose. 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 He agreed that his anxiety should be managed without benzodiazepines given their association with poor outcomes in patients with AUD. We again reviewed options like baclofen, topiramate, gabapentin. Has tried gabapentin and didn't like it. Will try topiramate starting this evening, may help anxiety as well, lower risk of seizuress. (3) Abdominal pain: Status: Acute Assessment and plan: Initial evalatuation with labs/EKG benign. I was concerned about a posterior ulcer with h/h drop or pancratitis. Lipase normal and h/h stable. Now more c/w bowel pain, no BM x 3 days. Try bowel regimen. FOB pending. Responds to hydromorphone but I don't want him on this long. If worse, get CT (4) Depression with anxiety: Status: Chronic Assessment and plan: We had a long discussion 09/18 of his history and options for treatment. He was previously on SNRI duloxetine, also has some back pain issues, was going to use this, but per pharmacy higher risk of liver injury with AUD. Went with sertraline. Given h/o seizures, stopped buproprion. Can use prn hydroxyzine Has been on clonidine, on precedex now, started guafacine 3 pm as in the same class but levels will fluctuate less with longer half life. We can go up to 2mg if needed. (5) Tobacco use disorder, continuous: Status: Acute Assessment and plan: NRT prn, might help with anxiety doesn't want to try chantix, no change (6) Alcoholic hepatitis: Status: Acute Assessment and plan: Mild, normal INR and bili. AST/ALT continues to imrpove. (7) Thrombocytopenia: Status: Chronic Assessment and plan: I am not sure how chronic this is. Alcohol likely cause, B12 normal. He could also have cirrhosis. 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 Continue to follow. (8) Anemia: Status: Chronic Assessment and plan: Mild after hydration, but dropped again 09/18, now stabilized. He is at risk for GI bleed but we haven't seen this. Ferritin and B12 not low. FOB pending. On PPI as he also has abdominal pain. (9) Hypomagnesemia: Status: Acute Assessment and plan: Normalized after low after at total of 6g. Subjective Subjective Patient reports: denies nausea, vomiting, shortness of breath or fever Interval history since last seen: Events: Epigastric abdominal pain, benign evaluation including CBC/CMP/lipase/troponin/EKG. Responded to hydromorphone Added sertraline, topiramate and guafacine (instead of clonidine) at hs for anxiety, AUD He feels better with pain medication but still some abdominal pain and bloating. Passing gas helps a little. Pain more in LLQ now. Voiding without dysuria, but slow to start. Exam Narrative Exam Narrative: GEN: Alert and oriented, anxious but comfortable appearing, lucid and cooperative. LUNGS: CTAB with normal effort CV: RRR with no murmurs, gallops, or rubs. ABD: hypoaactive bowel sounds, softly distended, tympanic, mildly tender in left mid to lower abdomen, not epigastric now. EXT: no cyanosis, clubbing, or edema NEURO: Normal speech, no tremor PSYCH: mood depressed, affect anxious, no hallucinations Objective Last Vital Signs Temp 36.7 C 09/19/24 07:46 Pulse 81 09/19/24 08:01 Resp 15 09/19/24 08:01 BP 100/65 09/19/24 08:01 Pulse Ox 97 09/19/24 08:01 Laboratory Results - last 24 hr 09/18/24 09/19/24 09/19/24 18:33 03:00 05:53 WBC 7.81 6.64 RBC 2.81 L 2.79 L Hgb 9.7 L 9.5 L Hct 26.7 L 26.9 L MCV 95 D 96 H MCH 34.5 H 34.1 H MCHC 36.3 H 35.3 RDW 11.7 L 11.9 Plt Count 128 L 115 L MPV 10.2 10.3 Immature Gran % 0.4 Neutrophils % 72.3 Lymphocytes % 18.3 Monocytes % 6.5 Eosinophils % 2.4 Basophils % 0.1 Nucleated RBC % 0.0 Absolute Neutrophils 5.64 Absolute Lymphocytes 1.43 Absolute Monocytes 0.51 Absolute Eosinophils 0.19 Absolute Basophils 0.01 APTT Cancelled Sodium 133 L Potassium 3.7 Chloride 97 L Carbon Dioxide 28.8 Anion Gap 7.2 BUN 11 Creatinine 0.6 L Est GFR (CKD-EPI 2020) 125.15 Glucose 106 Calcium 8.2 L Magnesium 1.9 Total Bilirubin 0.4 AST 57 H ALT 128 H Alkaline Phosphatase 58 Troponin I 12 Total Protein 5.6 L Albumin 3.2 L Lipase 26 Phenobarbital Cancelled 22.8 PAWSS Have you Been Recently Intoxicated or Drunk Within the Last 30 days?: Yes Have you Ever Experienced Previous Episodes of Alcohol Withdrawal?: Yes Have you ever Experienced Withdrawal Seizures?: Yes Have you ever Experienced Delirium Tremens(DT)s?: Yes Have you ever undergone Alcohol Rehabilitation Treatment (i.e, inpt ot outpatient treatment programs)?: Yes Have you ever Experienced Blackouts?: Yes Have you ever Combined Alcohol with other Downers within the last 90 days?: No Have you ever Combined Alcohol with any other Substance of Abuse during the last 90 days?: No Positive Blood Alcohol level on Presentation? [PCS.BAL]: Yes Evidence of Increased Autonomic Activity (i.e. HR>120, tremor, sweating, agitation, nausea)?: Yes Result: 8 Time Spent with Patient Time Spent with Patient: >50 minutes Time was spent: preparing to see the patient(eg.review tests), obtaining and/or reviewing separately otained hiistory, ordering medications,tests, procedures, referring, communicating with other health care coordinator, indepentently interpreting results, counseling the patient and care coordination
--- NOTE | 2024-09-19 08:40 | CMPROGNOTE_ITS ---
Date of service: 09/19/24 Time of Service: 08:40 Care Management Progress Note Progress Note Text Progress Note Text: Lorenzo was awake and lying in bed when CM met with him. He's been experiencing epigastric pain since yesterday, and noted to have black tarry stool this morning likely related to alcoholic gastritis, per provider. He continues to be closely monitored and treated for ETOH and Benzo withdrawal. He has chronic anxiety, which is being medically managed; he is on Precedex and his Phenobarb is maxed out. Anticipate he will discharge home when he is off the precedex and medically stable, per Dr. Sen. Lorenzo declines to meet with a recovery assistant, again today. He is agreeable, at a later time and when he is less anxious/less medicated. Lorenzo is self employed, his lives in [facility], but he gets his mail in [place]. CM will follow. Discharge Potential Discharge Needs: Other (Field Human Resources Manager, Sobriety resources) Anticipated Barriers to Discharge: None Identified Patient/Family Education Needs: Review discharge instructions, discuss Ask Me Three Transportation: Private vehicle Plan: Anticipate, pt will discharge home via private when medically cleared for discharge. He will follow up with his local PCP and discharge plan of care as directed. CM will follow and connect patient with community supports for substance abuse, when ready. Social Determinants of Health Screening Social Determinants of Health last assessed: 09/19/24 Will the Patient Participate in the Screening?: Yes Do you worry about having a steady place to live?: no Problems where you live: mold and water leaks In the past 12 months, have you had to go without electric, gas, oil or water in your home?: no Have you or anyone in your house had to go without enough food to eat?: no Has lack of transportation kept you from medical appointments or from doing things needed for daily living?: no Has anyone in your life made you feel unsafe or unsupported?: no How hard is it for you to pay for the very basics like food, housing, medical care, and heating? Would you say it is:: Not hard at all Do you want help finding or keeping work or a job?: I do not need or want help If for any reason you need help with day-to-day activities such as bathing, preparing meals, shopping, managing finances, etc., do you get the help you need?: I don?t need any help How often do you feel lonely or isolated from those around you?: Always Do you speak a language other than Slov[place] at home?: No Does the patient want assistance with any of the above?: No Health Related Social Needs Health related social needs: inadequate housing (Z59.1) and feeling lonel y/isolated (Z60.8)
[2024-09-19 14:06] LABS: HCT 27.9 % (40.0-50.0); HGB 9.7 g/dL (13.5-17.5)
[2024-09-19] MEDS: Nicotine 21 MG/24 HR PATCH TD (20:44)
[2024-09-19] MEDS: Simethicone 80 MG CHEW PO (20:46)
[2024-09-19] MEDS: guanFACINE 1 MG TAB PO (20:46)
[2024-09-19] MEDS: Fluticasone NASAL SPRAY 16 GM BTL NS (20:48)
[2024-09-19] MEDS: Topiramate 50 MG TAB 25 MG PO (20:50)
--- NOTE | 2024-09-19 23:19 | DI.RAD_ITS ---
Exam(s) XR ABDOMEN FLAT PLATE EXAM: 2D digital imaging was performed. CLINICAL HISTORY: abdominal pain/bloating. COMPARISON: No exams were available for comparison TECHNIQUE: Supine views of the abdomen performed. FINDINGS: BOWEL GAS PATTERN: The stomach is not abnormally distended. There are mildly dilated loops of small bowel throughout the abdomen. There is some air seen within the colon. Findings could represent a d iffuse ileus however partial distal small bowel obstruction is also possibility. Normal quantity of stool. CALCIFICATIONS: No visible radiopaque urinary tract calcifications. OSSEOUS STRUCTURES: Unremarkable for age. OTHER FINDINGS: None. IMPRESSION: Diffuse mild distention of small-bowel loops could indicate ileus versus partial distal small bowel o bstruction. DATA REPOSITORY: RADIATION DOSE DELIVERED:
--- NOTE | 2024-09-20 00:15 | DI.VRAD_ITS ---
PROCEDURE INFORMATION: Exam: XR Abdomen Exam date and time: 09/19/2024 11:12 PM Age: 39 years old Clinical indication: Generalized; Abdominal pain, bloating TECHNIQUE: Imaging protocol: Radiologic exam of the abdomen. Views: Frontal supine view of the abdomen. 1 View. COMPARISON: No relevant prior studies available. FINDINGS: Gastrointestinal tract: Distended small bowel loops are identified in the abdomen which does raise the possibility of the small bowel obstruction even though areas identified in the colon. Bones/joints: Unremarkable. IMPRESSION: Distended small bowel loops which does raise the possibility of the small bowel obstruction. Continued follow-up is recommended. Dictated and Authenticated by: Eduard Zamora MD. Orderin Mckinley Dumont MD
[2024-09-20] MEDS: Acetaminophen 325 MG TAB PO ×3 (00:52→15:09)
[2024-09-20] MEDS: HYDROmorphone 2 MG/ML SYR 1 MG IVP ×5 (00:53→20:33)
[2024-09-20] MEDS: Sucralfate 1 GM TAB PO ×5 (00:54→21:52)
[2024-09-20] MEDS: Normal Saline Flush 10 ML SYR IVP ×4 (00:55→20:21)
--- NOTE | 2024-09-20 05:25 | W.PC.ACHO ---
Registration Status: Primary Language: Preferred Language: Most Recent Vital Signs Temperature 37.7 C H 09/19/24 12:30 Temperature Source Temporal Artery Scan 09/19/24 12:30 Pulse 110 H 09/19/24 21:01 Pulse 110 H 09/19/24 21:02 Respiratory Rate 14 09/19/24 21:02 Blood Pressure 148/91 H 09/19/24 21:01 Blood Pressure Mean 108 09/19/24 21:01 Pulse Oximetry 97 09/19/24 10:00 Oxygen Delivery Method Room Air 09/19/24 07:46 Oxygen Flow Rate 0 09/19/24 07:46 Pain Level 7 09/20/24 00:53 Comment pt has pain neck/stomach. 09/19/24 07:46 Allergies animal dander Allergy (Intermediate, Verified 09/16/24 20:49) Other (See Comment) sneezing, and nasal congestion gabapentin Adverse Reaction (Unknown, Verified 09/17/24 21:06) Unknown patient does not like how he feels with it Active Medications Generic Name Dose Route Start Last Admin Trade Name Freq PRN Reason Stop Dose Admin Acetaminophen 325 - 650 mg 09/16/24 20:51 09/20/24 00:52 Acetaminophen 325 Mg Tab PO 650 mg Q4H PRN PRN Administration Al Hydrox/Mg Hydrox/Simethicone 30 ml 09/16/24 20:51 09/18/24 12:07 Mylanta Suspension 30 Ml Cup PO 30 ml Q2H PRN PRN Administration Docusate Sodium 100 mg 09/16/24 20:51 09/18/24 22:13 Docusate Sodium 100 Mg Cap PO 100 mg TID PRN PRN Administration Fluticasone Propionate 0 gm 09/18/24 20:00 09/19/24 20:48 Fluticasone Nasal [place] 16 Gm Btl NS 2 sprays HS JORDAN Administration Folic Acid 1 mg 09/17/24 08:30 09/19/24 08:13 Folic Acid 1 Mg Tab PO 09/23/24 08:31 1 mg QAM JORDAN Administration Guanfacine HCl 1 mg 09/18/24 20:00 09/19/24 20:46 Guanfacine 1 Mg Tab PO 1 mg QPM JORDAN Administration Hydromorphone HCl 1 mg 09/18/24 18:19 09/20/24 00:53 Hydromorphone 2 Mg/Ml Syr IVP 1 mg Q4H PRN PRN Administration Hydroxyzine HCl 25 mg 09/18/24 11:02 09/19/24 18:28 Hydroxyzine Hcl 25 Mg Tab PO 25 mg QID PRN PRN Administration Dexmedetomidine/Sodium Chloride 400 mcg in 100 mls @ 7.19 mls/hr 09/17/24 08:30 09/19/24 09:07 Precedex IV 0 mcg/kg/hr INFUSION JORDAN 0 mls/hr Titration Protocol 0.4 MCG/KG/HR Magnesium Hydroxide 30 ml 09/16/24 20:51 09/18/24 13:28 Milk Of Magnesia 30 Ml Cup PO 30 ml DAILY PRN PRN Administration Multivitamins 1 tab 09/17/24 08:30 09/19/24 08:13 Multivitamin Tab PO 09/23/24 08:31 1 tab QAM JORDAN Administration Nicotine 21 mg 09/17/24 08:19 09/19/24 20:44 Nicotine 21 Mg/24 Hr Patch TD 21 mg DAILY PRN PRN Administration Ondansetron HCl 4 mg 09/17/24 08:23 09/18/24 08:03 Ondansetron O.D.T. 4 Mg Tabef PO 4 mg Q8H PRN PRN Administration Pantoprazole Sodium 40 mg 09/19/24 20:00 09/19/24 20:46 Pantoprazole 40 Mg Tabcr PO 40 mg BID@0730,2000 JORDAN Administration Prochlorperazine Edisylate 10 mg 09/16/24 23:47 09/17/24 03:57 Prochlorperazine 10 Mg/2 Ml Vial IVP 10 mg Q4H PRN PRN Administration Sertraline HCl 50 mg 09/19/24 08:30 09/19/24 08:14 Sertraline 50 Mg Tab PO 50 mg DAILY JORDAN Administration Simethicone 80 mg 09/18/24 15:31 09/19/24 20:46 Simethicone 80 Mg Chew PO 80 mg TID PRN PRN Administration Sodium Chloride 0 ml 09/16/24 18:18 09/20/24 00:55 Normal Saline Flush 10 Ml Syr IVP 40 ml PRN PRN Administration Sodium Chloride 0 ml 09/16/24 20:00 09/19/24 20:50 Normal Saline Flush 10 Ml Syr IVP 10 ml BID JORDAN Administration Thiamine HCl 100 mg 09/17/24 08:30 09/19/24 08:13 Thiamine 100 Mg Tab PO 09/23/24 08:31 100 mg QAM JORDAN Administration Topiramate 25 mg 09/18/24 20:00 09/19/24 20:50 Topiramate 50 Mg Tab PO 25 mg HS JORDAN Administration IV IV Catheter Type [Right Hand] Saline Lock IV Catheter Type [Left Hand] Peripheral IV IV Catheter Type [Right Saline Lock Antecubital] IV Catheter Gauge [Right Hand] 20 IV Catheter Gauge [Left Hand] 22 IV Catheter Gauge [Right 18 Antecubital] Diagnostics 09/20/24 09/19/24 09/19/24 Range/Units 05:35 14:00 05:53 WBC Pending RBC Pending Hgb Pending 9.7 L (13.5-17.5) g/dL Hct Pending 27.9 L (40.0-50.0) % MCV Pending MCH Pending MCHC Pending RDW Pending Plt Count Pending MPV Pending Sodium Pending Potassium Pending Chloride Pending Carbon Dioxide Pending Anion Gap Pending BUN Pending Creatinine Pending Est GFR (CKD-EPI 2020) Pending Glucose Pending Calcium Pending Phenobarbital 22.8 (15.0-40.0) ug/mL Intake and Output - 24 Hour Total 09/16/24 thru 09/20/24 01:28 Intake Total 98999.768 Output Total 77980 Balance 3142.768 Weight 75.6 kg Intake: IV 2776.768 Oral 26497 Output: Urine 36804 Stool 200 Other: Urine Color Yellow Urine Appearance Clear Urine Odor None Stool Occult Blood Positive Stool Size Small Stool Characteristics Liquid Problems Abdominal pain (Acute) Hypomagnesemia (Acute) Anemia (Chronic) Thrombocytopenia (Chronic) Alcoholic hepatitis (Acute) Tobacco use disorder, continuous (Acute) Depression with anxiety (Chronic) Alcohol withdrawal (Acute) Alcohol abuse (Chronic) v v v v v v v v v Sending and/or Receiving Nurses: Please use comment section below to note any information pertinent to the patient hand-off not included above. Information / Comments: Report received from STILL OPERATOR HELPERRONI Buckley, patient is AO x 4. w/ diagnosis of alcohol withdrawal, has history of seizures, and tremor on both hands as baseline. Been medicated with dilaudid. Patient has episode of diarrhea and passing lot of gas. XRay on abdomen was completed but result not seen yet. Independent in ambulating in short distance in the room. Will be transferred to 218. Report received from:
[2024-09-20 07:16] LABS: HCT 25.2 % (40.0-50.0); HGB 8.5 g/dL (13.5-17.5); MCH 33.7 pg (27.0-33.0); MCHC 33.7 % (32.0-36.0); MCV 100 fL (80-95); MPV 10.2 fL (8.0-11.0); Platelet Count 142 10^3/uL (130-400); RBC 2.52 10^6/uL (4.36-5.78); RDW 12.5 % (11.8-14.1); RDW-SD 45.4 fL; WBC 5.98 10^3/uL (4.4-10.8)
[2024-09-20 07:32] LABS: Anion Gap 7.3 mmol/L (3-11); BUN 6 mg/dL (7-18); CO2 28.7 mmol/L (21.0-32.0); CREATININE 0.7 mg/dL (0.70-1.30); Calcium 8.8 mg/dL (8.5-10.1); Chloride 101 mmol/L (98-107); Estimated GFR 119.46 (mL/min/1.73m2); Glucose 98 mg/dL (74-106); Potassium 3.7 mmol/L (3.5-5.1); Sodium 137 mmol/L (136-145)
[2024-09-20 08:11] VITALS: BP 153/92; PULSE 93; RESP 15; TEMP 37.1; O2SAT 100
[2024-09-20] MEDS: Folic Acid 1 MG TAB PO (09:41)
[2024-09-20] MEDS: hydrOXYzine HCL 25 MG TAB PO ×2 (09:41→15:09)
[2024-09-20] MEDS: Multivitamin TAB 1 TAB PO (09:42)
[2024-09-20] MEDS: Pantoprazole 40 MG TABCR PO ×2 (09:42→20:22)
[2024-09-20] MEDS: Thiamine 100 MG TAB PO (09:42)
[2024-09-20] MEDS: Sertraline 50 MG TAB PO (09:42)
--- NOTE | 2024-09-20 10:30 | PDOC.CMDIS ---
Date of service: 09/20/24 Time of Service: 10:30 LACE Index Scoring Tool Questions: Length of Stay (in days): 4 - 6 Care Management Discharge SDOH Health Related Social Needs: Health related social needs inadequate housing (Z59.1), feeling lonely/isolated (Z60.8)
--- NOTE | 2024-09-20 11:51 | W.PM.PROGNOT ---
Date of Service Date of service: 09/20/24 Time of Service: 11:51 Assessment and Plan Assessment and plan (1) Alcohol withdrawal: Start date: 09/16/24 Status: Acute Assessment and plan: Combination of alcohol and benzodiazepine withdrawal, now day 4 H/o seizures in setting of withdrawal. On phenobarbital protocol, has hit hard max, but with levels therapeutic after dose 09/18. I don't think he needs more of this Dexmedetomide drip helping, still on good dose. Try to taper off as tolerated, started guaficine which should help. (2) Alcohol abuse: Status: Chronic Assessment and plan: H/o severe alcohol use disorder. Has been treated with IM naltrexone, though multiple weeks late for dose. 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 He agreed that his anxiety should be managed without benzodiazepines given their association with poor outcomes in patients with AUD. We again reviewed options like baclofen, topiramate, gabapentin. Has tried gabapentin and didn't like it. Will try topiramate starting this evening, may help anxiety as well, lower risk of seizuress. (3) Abdominal pain: Status: Acute Assessment and plan: Initial evalatuation with labs/EKG benign. I was concerned about a posterior ulcer with h/h drop or pancratitis. Lipase normal and h/h stable. Now more c/w bowel pain, no BM x 3 days. Try bowel regimen. FOB pending. Responds to hydromorphone but I don't want him on this long. If worse, get CT 09/20/24 KUB reviewed and agree with partial sbo (passing gas) vs ileus. Will order some relistor 12mcq sq times 1 (4) Depression with anxiety: Status: Chronic Assessment and plan: We had a long discussion 09/18 of his history and options for treatment. He was previously on SNRI duloxetine, also has some back pain issues, was going to use this, but per pharmacy higher risk of liver injury with AUD. Went with sertraline. Given h/o seizures, stopped buproprion. Can use prn hydroxyzine Has been on clonidine, on precedex now, started guafacine 09/18 pm as in the same class but levels will fluctuate less with longer half life. We can go up to 2mg if needed. (5) Tobacco use disorder, continuous: Status: Acute Assessment and plan: NRT prn, might help with anxiety doesn't want to try chantix, no change (6) Alcoholic hepatitis: Status: Acute Assessment and plan: Mild, normal INR and bili. AST/ALT continues to imrpove. (7) Thrombocytopenia: Status: Chronic Assessment and plan: I am not sure how chronic this is. Alcohol likely cause, B12 normal. He could also have cirrhosis. 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 Continue to follow. 09/20/24 Improving and no active bleed. No indication for plt xfusion (8) Anemia: Status: Chronic Assessment and plan: Mild after hydration, but dropped again 09/18, now stabilized. He is at risk for GI bleed but we haven't seen this. Ferritin and B12 not low. FOB pending. On PPI as he also has abdominal pain. 09/20/24 Hg dropped from 11 to 8.5 since admission. Will start on PPI, hemoccult check stool as well as check an iron/tibc/folate. Bun/cr ratio much improved (9) Hypomagnesemia: Status: Acute Assessment and plan: Normalized after low after at total of 6g. Subjective Subjective Interval history since last seen: Pt seen and examined in his room this am. Pt does complain of abd pain and distention. Pt states that he is passing gas but that he gets worsening pain with eating. POC d/w pt as well as with bedside nurse during MDR. Exam Narrative Exam Narrative: GEN: Alert and oriented, anxious but comfortable appearing, lucid and cooperative. LUNGS: CTAB with normal effort CV: RRR with no murmurs, gallops, or rubs. ABD: hypoaactive bowel sounds, moderate distended, tympanic, mildly tender in left mid to lower abdomen, not epigastric now EXT: no cyanosis, clubbing, or edema NEURO: Normal speech, no tremor PSYCH: mood depressed, affect anxious, no hallucinations Objective Last Vital Signs Temp 37.1 C 09/20/24 08:11 Pulse 93 H 09/20/24 08:11 Resp 15 09/20/24 08:11 BP 153/92 H 09/20/24 08:11 Pulse Ox 100 09/20/24 08:11 Laboratory Results - last 24 hr 09/19/24 09/20/24 14:00 07:01 WBC 5.98 RBC 2.52 L Hgb 9.7 L 8.5 L Hct 27.9 L 25.2 L MCV 100 H D MCH 33.7 H MCHC 33.7 RDW 12.5 Plt Count 142 MPV 10.2 Sodium 137 Potassium 3.7 Chloride 101 Carbon Dioxide 28.7 Anion Gap 7.3 BUN 6 L Creatinine 0.7 Est GFR (CKD-EPI 2020) 119.46 Glucose 98 Calcium 8.8 PAWSS Have you Been Recently Intoxicated or Drunk Within the Last 30 days?: Yes Have you Ever Experienced Previous Episodes of Alcohol Withdrawal?: Yes Have you ever Experienced Withdrawal Seizures?: Yes Have you ever Experienced Delirium Tremens(DT)s?: Yes Have you ever undergone Alcohol Rehabilitation Treatment (i.e, inpt ot outpatient treatment programs)?: Yes Have you ever Experienced Blackouts?: Yes Have you ever Combined Alcohol with other Downers within the last 90 days?: No Have you ever Combined Alcohol with any other Substance of Abuse during the last 90 days?: No Positive Blood Alcohol level on Presentation? [PCS.BAL]: Yes Evidence of Increased Autonomic Activity (i.e. HR>120, tremor, sweating, agitation, nausea)?: Yes Result: 8 Time Spent with Patient Time Spent with Patient: 35-49 minutes Time was spent: preparing to see the patient(eg.review tests), obtaining and/or reviewing separately otained hiistory, ordering medications,tests, procedures, referring, communicating with other health attending ambulatory care, indepentently interpreting results, counseling the patient and care coordination
[2024-09-20 11:57] VITALS: BP 157/95; PULSE 93; RESP 15; TEMP 36.6; O2SAT 100
[2024-09-20] MEDS: Methylnaltrexone 12 MG/0.6 ML VIAL SC (13:31)
[2024-09-20] MEDS: Sodium Chloride-Nasal SPRAY-ADULT 44 ML BTL NS (13:36)
--- NOTE | 2024-09-20 14:00 | CMPROGNOTE_ITS ---
Date of service: 09/20/24 Time of Service: 14:00 Care Management Progress Note Progress Note Text Progress Note Text: Lorenzo is awake and sitting up in bed when CM met with him. He is anxious and this interaction is brief. He c/o abdominal pain and distention, likely due to Alcoholic Gastritis. He is being tapered off Precedex. Lorenzo agreed to meet with a recovery engineer today, however this morning when they came to meet with him he refused and reported that he already has a recovery engineer. [facility] left resources. CM will follow. Discharge Potential Discharge Needs: PCP F/U Appt Anticipated Barriers to Discharge: None Identified Patient/Family Education Needs: Review discharge instructions, discuss Ask Me Three Transportation: Private vehicle Plan: Anticipate, pt will discharge home via private when medically cleared for discharge. He will follow up with his local PCP and discharge plan of care as directed. Community resources have been offered to Lorenzo, follow up is recommended and he verbalizes understanding that it is up to him reach out to sobriety supports. Social Determinants of Health Screening Social Determinants of Health last assessed: 09/20/24 Will the Patient Participate in the Screening?: Yes Do you worry about having a steady place to live?: no Problems where you live: mold and water leaks In the past 12 months, have you had to go without electric, gas, oil or water in your home?: no Have you or anyone in your house had to go without enough food to eat?: no Has lack of transportation kept you from medical appointments or from doing things needed for daily living?: no Has anyone in your life made you feel unsafe or unsupported?: no How hard is it for you to pay for the very basics like food, housing, medical care, and heating? Would you say it is:: Not hard at all Do you want help finding or keeping work or a job?: I do not need or want help If for any reason you need help with day-to-day activities such as bathing, preparing meals, shopping, managing finances, etc., do you get the help you need?: I don?t need any help How often do you feel lonely or isolated from those around you?: Always Do you speak a language other than [place]ic at home?: No Does the patient want assistance with any of the above?: No Health Related Social Needs Health related social needs: inadequate housing (Z59.1) and feeling lonely/isolated (Z60.8)
[2024-09-20] MEDS: Prochlorperazine 10 MG/2 ML VIAL IVP (15:06)
[2024-09-20] MEDS: Simethicone 80 MG CHEW PO (15:19)
[2024-09-20 19:27] VITALS: BP 135/98; PULSE 121; RESP 19; TEMP 36.6; O2SAT 96
[2024-09-20] MEDS: Nicotine 21 MG/24 HR PATCH TD (20:21)
[2024-09-20] MEDS: Topiramate 50 MG TAB 25 MG PO (20:22)
[2024-09-20] MEDS: guanFACINE 1 MG TAB PO (20:22)
[2024-09-20] MEDS: Fluticasone NASAL SPRAY 16 GM BTL NS (20:32)
[2024-09-20 23:06] VITALS: BP 145/94; PULSE 94; RESP 19; TEMP 36.6; O2SAT 98
[2024-09-21] MEDS: Normal Saline Flush 10 ML SYR IVP ×2 (01:05→08:56)
[2024-09-21] MEDS: HYDROmorphone 2 MG/ML SYR 1 MG IVP ×2 (01:06→08:55)
[2024-09-21] MEDS: Acetaminophen 325 MG TAB PO ×2 (01:06→08:54)
[2024-09-21 03:34] VITALS: BP 147/95; PULSE 88; RESP 18; TEMP 36; O2SAT 98
[2024-09-21 07:23] LABS: Abs Immature Grans 0.02 10^3/uL (0.0-0.06); Absolute Basophil Count 0.02 10^3/uL (0.0-0.2); Absolute Eosinophil Count 0.18 10^3/uL (0.0-0.7); Absolute Lymphocyte Count 2.19 10^3/uL (1.2-3.4); Absolute Monocyte Count 0.62 10^3/uL (0.1-0.8); Absolute Neutrophil Count 3.01 10^3/uL (1.2-6.7); Basophils % 0.3 %; HCT 27.2 % (40.0-50.0); HGB 9.4 g/dL (13.5-17.5); Immature Grans % 0.3 %; Lymphocytes % 36.3 %; MCH 34.4 pg (27.0-33.0); MCHC 34.6 % (32.0-36.0); MCV 100 fL (80-95); MPV 10.5 fL (8.0-11.0); Monocytes % 10.3 %; Neutrophils % 49.8 %; Platelet Count 176 10^3/uL (130-400); RBC 2.73 10^6/uL (4.36-5.78); RDW 13.1 % (11.8-14.1); RDW-SD 46.1 fL; WBC 6.04 10^3/uL (4.4-10.8)
[2024-09-21 07:43] VITALS: BP 147/98; PULSE 99; RESP 16; TEMP 36.8; O2SAT 98
[2024-09-21 08:10] LABS: ALT 79 U/L (16-63); AST 38 U/L (15-37); Albumin 3.5 g/dL (3.4-5.0); Alkaline Phosphatase 84 U/L (46-116); Anion Gap 8.7 mmol/L (3-11); BUN 8 mg/dL (7-18); Bilirubin, Total 0.3 mg/dL (0.2-1.0); CO2 29.3 mmol/L (21.0-32.0); CREATININE 0.7 mg/dL (0.70-1.30); Calcium 8.9 mg/dL (8.5-10.1); Chloride 102 mmol/L (98-107); Estimated GFR 119.46 (mL/min/1.73m2); Glucose 85 mg/dL (74-106); Potassium 3.8 mmol/L (3.5-5.1); Sodium 140 mmol/L (136-145); TSH (W/Ref FT4) 1.08 uIU/mL (0.36-3.74); Total Protein 6.8 g/dL (6.4-8.2)
[2024-09-21] MEDS: Simethicone 80 MG CHEW PO (08:53)
[2024-09-21] MEDS: Multivitamin TAB 1 TAB PO (08:54)
[2024-09-21] MEDS: Pantoprazole 40 MG TABCR PO (08:54)
[2024-09-21] MEDS: Folic Acid 1 MG TAB PO (08:54)
[2024-09-21] MEDS: Sucralfate 1 GM TAB PO ×2 (08:54→11:42)
[2024-09-21] MEDS: hydrOXYzine HCL 25 MG TAB PO ×2 (08:55→12:04)
[2024-09-21] MEDS: Thiamine 100 MG TAB PO (08:55)
[2024-09-21] MEDS: Sertraline 50 MG TAB PO (08:55)
[2024-09-21 11:05] VITALS: BP 123/98; PULSE 102; RESP 16; TEMP 36.1; O2SAT 98
--- NOTE | 2024-09-21 11:24 | DSE_ITS ---
Date of service: 09/21/24 Time of Service: 17:40 DS: Diagnosis Discharge Diagnosis (1) Alcohol withdrawal: Status: Resolved (2) Alcohol abuse: Status: Chronic (3) Abdominal pain: Status: Resolved (4) Depression with anxiety: Status: Chronic (5) Tobacco use disorder, continuous: Status: Acute (6) Alcoholic hepatitis: Status: Acute (7) Thrombocytopenia: Status: Chronic (8) Anemia: Status: Chronic (9) Hypomagnesemia: Status: Resolved Discharge Plan Disposition Patient Disposition: Home Condition: Stable Discharge Details Reason For Visit: Alcohol Withdrawal Admit Date/Time: 09/16/24 18:19 Admit Provider: Tim Sen Attending Provider: Tim Sen Primary Care Provider: Dante Johnson Hospital Course Hospital Course: History of Present Illness History of Present Illness Chief Complaint: Benzodiazepine withdrawal with alcohol abuse. Narrative: This is a 39-year-old male patient who resides in [place], [place] seeing his PCP at [facility] and psychiatry and in [place]. He does have alcohol abuse and has intermittently stopped using alcohol once for more than a year and recently just under a year. He does drink alcohol to self treat anxiety with depression and is on antidepressants along with clonidine for blood pressure. He also was prescribed Klonopin at a low dose but frequent dosing over the last several months with the last prescription miss-written and the patient running out early. He ran out for about 1 week and had an escalation in his alcohol use. He is on Vivitrol IM monthly through mental health. He has his prescriptions for Klonopin through mental health and finds that at times they are difficult to engage with but he has problems. I did advise that he engage with his PCP on his controlled substance treatment to have more communication and to avoid this situation in the future. VPMS was reviewed and does reveal prescribing of Klonopin through mental health as patient stated. He will try. With negative for any other substances. Patient reported to the ED did not have alcohol because of concerns for alcohol withdrawal and benzodiazepine withdrawal. He was given a dose of Ativan but wants a [facility] ER called for transfer to our ICU unit, he was directed to phenobarbital protocol for alcohol withdrawal. He did have an alcohol level earlier in the day of admission at [facility]. Upon transfer to [facility] ICU, the patient was having alcohol withdrawal actively and phenobarbital loading dose was completed with intermittent phenobarbital for withdrawal sympt oms. Patient does have fair insight into his problems with addiction and self treating. He is engaged with mental health and will continue this relationship. He was admitted to ICU because of his severe withdrawal with seizures in the past. He was given the higher dose of phenobarbital loading. We will avoid benzodiazepines during this hospital stay, patient needs to discuss alternative treatments for his anxiety and benzodiazepines in the future because of his difficulty obtaining consistent prescribing. His medical problems are stable upon transfer and admission to ICU. He does not appear to have any problem with other substance abuse. He is a full code. Assessment and Plan Assessment and plan (1) Alcohol withdrawal: Start date: 09/16/24 Status: Acute Assessment and plan: Combination of alcohol and benzodiazepine withdrawal, now day 4 H/o seizures in setting of withdrawal. On phenobarbital protocol, has hit hard max, but with levels therapeutic after dose 09/18. I don't think he needs more of this Dexmedetomide drip helping, still on good dose. Try to taper off as tolerated, started guaficine which should help. (2) Alcohol abuse: Status: Chronic Assessment and plan: H/o severe alcohol use disorder. Has been treated with IM naltrexone, though multiple weeks late for dose. 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 He agreed that his anxiety should be managed without benzodiazepines given their association with poor outcomes in patients with AUD. We again reviewed options like baclofen, topiramate, gabapentin. Has tried gabapentin and didn't like it. Will try topiramate starting this evening, may help anxiety as well, lower risk of seizuress. (3) Abdominal pain: Status: Acute Assessment and plan: Initial evalatuation with labs/EKG benign. I was concerned about a posterior ulcer with h/h drop or pancratitis. Lipase normal and h/h stable. Now more c/w bowel pain, no BM x 3 days. Try bowel regimen. FOB pending. Responds to hydromorphone but I don't want him on this long. If worse, get CT (4) Depression with anxiety: Status: Chronic Assessment and plan: We had a long discussion 09/18 of his history and options for treatment. He was previously on SNRI duloxetine, also has some back pain issues, was going to use this, but per pharmacy higher risk of liver injury with AUD. Went with sertraline. Given h/o seizures, stopped buproprion. Can use prn hydroxyzine Has been on clonidine, on precedex now, started guafacine 3 pm as in the same class but levels will fluctuate less with longer half life. We can go up to 2mg if needed. (5) Tobacco use disorder, continuous: Status: Acute Assessment and plan: NRT prn, might help with anxiety doesn't want to try chantix, no change (6) Alcoholic hepatitis: Status: Acute Assessment and plan: Mild, normal INR and bili. AST/ALT continues to imrpove. (7) Thrombocytopenia: Status: Chronic Assessment and plan: I am not sure how chronic this is. Alcohol likely cause, B12 normal. He could also have cirrhosis. 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 Continue to follow. (8) Anemia: Status: Chronic Assessment and plan: Mild after hydration, but dropped again 09/18, now stabilized. He is at risk for GI bleed but we haven't seen this. Ferritin and B12 not low. FOB pending. On PPI as he also has abdominal pain. (9) Hypomagnesemia: Status: Acute Assessment and plan: Normalized after low after at total of 6g. Of note, while the patient was in the hospital he was heme positive in regards to his stool sample. I did recommend outpatient follow-up as soon as possible for screening both colonoscopy as well as endoscopy. My assumption is that this is most likely from a peptic ulcer disease but patient in regards to his medications on disposition I will add some Librium for alcohol withdrawal symptoms as well as anxiety. It is imperative the patient follow-up with a [facility] as provider as soon as possible While the patient was here he did complain of abdominal pain and imaging indicated partial small bowel obstruction versus ileus. I did give the patient some Relistor which improved his symptomology's. At the time of discharge he was tolerating his diet and passing gas and had a BM. Physical exam did not show any distention at that time with good bowel sounds Home Meds and New Rx's Prescriptions: New pantoprazole 40 mg Tablet,Delayed Release (Dr/Ec) 40 mg PO QAM Qty: 30 0RF nicotine 21 mg/24 hr Patch 24 Hour 21 mg transdermal QPM 7 Days Qty: 7 0RF sertraline 50 mg Tablet 50 mg PO DAILY 30 Days Qty: 30 0RF chlordiazepoxide HCl 5 mg capsule 5 mg PO TID PRNQty: 20 0RF Continued Vivitrol 380 mg suspension,extended rel recon 380 mg IM QMONTH thiamine HCl (vitamin B1) .ROUTE folic acid .ROUTE ferrous sulfate PO Discontinued clonazepam 0.5 mg tablet 0.5 mg PO TID bupropion HCl [Wellbutrin SR] 200 mg tablet sustained-release 12 hr 200 mg PO DAILY clonidine HCl 0.2 mg tablet 0.2 mg PO BID Discharge Instructions Stand Alone Forms: Nursing Discharge Form Referrals: Dante Johnson [Primary Care Provider] - 09/26/24 10:20 am (Follow up in 3-5 days. Recommend evaluation by a General Surgeon or GI ROXANNE secondary to hem positive stool) Activity:: Activity as Tolerated Equipment/Supplies:: No Equipment Needed Diet:: As Tolerated Discharge Orders Discharge Orders: Discharge Order (Routine); Ordered 09/21/24 Ordered By: Nikunj Madison Discharge Data Discharge Date/Time-TO BE ENTERED AT DEPARTURE: 09/21/24 13:10 DS: Summary Time Spent with Patient providing and/or coordinating discharge services: Less than 30 minutes Status at Discharge Functional status at discharge: independent ambulation Overall status at discharge: patient is back to baseline Mental Status: mental status grossly normal Speech and Movement: speech and movement normal Mood: congruent mood Affect: normal affect Quality:SDOH Health Related Social Needs: Health related social needs inadequate housing (Z59.1) , feeling lonely/isolated (Z60.8) Exam Psych Mental Status: mental status grossly normal Speech and Movement: speech and movement normal Mood: congruent mood Affect: normal affect DS: Data Vitals/I&O Vitals and I&O: Vital Signs Temperature 36.1 C L 09/21/24 11:05 Temperature Source Temporal Artery Scan 09/21/24 11:05 Pulse 102 H 09/21/24 11:05 Pulse 110 H 09/19/24 21:02 Respiratory Rate 16 09/21/24 11:05 Blood Pressure 123/98 H 09/21/24 11:05 Blood Pressure Mean 108 09/19/24 21:01 Pulse Oximetry 98 09/21/24 11:05 Oxygen Delivery Method Room Air 09/21/24 11:05 Oxygen Flow Rate 0 09/21/24 11:05 Pain Level 8 09/21/24 08:55 Comment RN notified of vitals 09/21/24 11:05 Intake & Output 09/20/24 09/20/24 09/21/24 11:59 23:59 11:59 Intake Total 440 / 460 20 / 460 740 / 740 Output Total 400 / 800 400 / 800 Balance 40 / -340 -380 / -340 740 / 740 Weight 74.7 kg 70.1 kg Intake: IV 40 / 60 20 / 60 / 20 Oral 400 / 400 720 / 720 Output: Urine 400 / 800 400 / 800 Other: Urine Color Yellow Yellow Yellow Urine Appearance Clear Clear Clear Urine Odor None Normal Comment unmeasured in toilet- per RN Patient voids ind. in the toilet. Stool Size Moderate Stool Characteristics Soft Formed Brown Black Data Completed and Pending Labs on day of discharge: Labs from last 24 hours 09/21/24 06:28 WBC 6.04 RBC 2.73 L Hgb 9.4 L Hct 27.2 L MCV 100 H MCH 34.4 H MCHC 34.6 RDW 13.1 Plt Count 176 MPV 10.5 Immature Gran % 0.3 Neutrophils % 49.8 Lymphocytes % 36.3 Monocytes % 10.3 Eosinophils % 3.0 Basophils % 0.3 Nucleated RBC % 0.0 Absolute Neutrophils 3.01 Absolute Lymphocytes 2.19 Absolute Monocytes 0.62 Absolute Eosinophils 0.18 Absolute Basophils 0.02 Sodium 140 Potassium 3.8 Chloride 102 Carbon Dioxide 29.3 Anion Gap 8.7 BUN 8 Creatinine 0.7 Est GFR (CKD-EPI 2020) 119.46 Glucose 85 Calcium 8.9 Total Bilirubin 0.3 AST 38 H ALT 79 H Alkaline Phosphatase 84 Total Protein 6.8 Albumin 3.5 TSH 1.08 PFSH All Active Problems (Updated 09/22/24 @ 00:00 by IRAIS BERGER) Anemia (Chronic) Thrombocytopenia (Chronic) Alcoholic hepatitis (Acute) Tobacco use disorder, continuous (Acute) Depression with anxiety (Chronic) Alcohol abuse (Chronic) Social History Smoking/Tobacco Use Status: Current every day Tobacco Type: cigarettes and smokeless tobacco Smoking risk assessment performed?: Yes Alcohol Intake: current Alcohol Intake frequency: 3 or more drinks per day Alc ohol type: beer Substance use type: does not use Housing: apartment Do you feel safe at home: Yes Do you feel safe in your relationship?: Yes Time Spent with Patient Time Spent with Patient: <45 minutes Time was spent: preparing to see the patient(eg.review tests), obtaining and/or reviewing separately otained hiistory, ordering medications,tests, procedures, referring, communicating with other health resident care associate, indepentently interpreting results, counseling the patient and care coordination
[2024-09-21] MEDS: Sodium Chloride-Nasal SPRAY-ADULT 44 ML BTL NS (11:43)
--- NOTE | 2024-09-21 14:30 | CMDISCH_ITS ---
Date of service: 09/21/24 Time of Service: 14:30 LACE Index Scoring Tool Questions: Length of Stay (in days): 4 - 6 Was the patient admitted via the E.D.?: Yes E.D. Visits: 1 Answers: Total Score: 8 Risk of Readmission: Low Risk Care Management Discharge Plan Reason for Hospitalization: Alcohol Withdrawal Discharge Plan: Lorenzo was discharged home today with no new services. He will f/u with PCP 09/26/24 and continue per his plan of care. He will f/u with his own community resources and transport home via private vehicle. Patient/Family Education Needs: Review of discharge instructions, activity limitations and discuss ask me three. SDOH Health Related Social Needs: Health related social needs inadequate housing (Z59.1) , feeling lonely/isolated (Z60.8)
== END 2024-09-21 13:10 | disposition home or self-care (01) | DRG 897 ==
LOC: ICU 09-19 18:49 → MS 09-20 05:25
PROVIDERS: Family Medicine; Admitting Provider Family Medicine; PCP Physician Assistant; Responsible Provider Hospitalist; Visit Provider Family Medicine
DX: K70.10 Alcoholic hepatitis without ascites; F10.139 Alcohol abuse with withdrawal, unspecified; F13.939 Sedative, hypnotic or anxiolytic use, unspecified with withdrawal, unspecified; D69.6 Thrombocytopenia, unspecified; D64.9 Anemia, unspecified; E83.42 Hypomagnesemia; F41.8 Other specified anxiety disorders; F17.210 Nicotine dependence, cigarettes, uncomplicated; Z79.899 Other long term (current) drug therapy; R10.9 Unspecified abdominal pain
CPT/HCPCS: 00123; 36415; 80048; 80053; 80184; 83690; 85027; 87637; J1650; 74018; 82270; 82272; 82607; 82728; 83735; 84100; 84443; 84484; 85014; 85018; 85025; 85610; 85730; 93005; 93010; 99223; 99233; 99239; 99291; J0780; J1171; J2212; J2470; J2560; J3475